=== PATIENT | female | born 1965 | race Caucasian/White ===

== ENCOUNTER 2017-04-02 03:04 | Emergency (ER) | payer OTHER ==
--- NOTE | 2017-04-02 03:06 | PDOC ---
History of Present Illness - General History Source: Patient Exam Limitations: No Limitations - History of Present Illness Initial Comments: 04/02/17 03:20 The patient is a 52 year old female with no significant past medical history who presents to the ED with complaints of irregular heart rate for 3 days and high blood pressure since earlier today. The patient reports palpitations whes she lays down. She states her symptoms woke her up from her sleep tonight.She reports taking 1 baby aspirin with slight relief. Patient also reports high blood pressure earlier today. Upon arrival to the ED the patients blood pressure was 169/94. Denies recent flu-like symptoms. Intermittent episodes of high blood pressure for the past several month but denies taking any medication. Denies shortness of breath or chest pain. Denies headache, lightheadedness, or dizziness. Denies abdominal pain, nausea, vomiting, or diarrhea. Denies any other symptoms. Social hx: The patient is a beautician and works at a salon. <Adrienne Mclean - Last Filed: 04/02/17 03:19> <Jana Riley - Last Filed: 04/02/17 21:58> - General Stated Complaint: RAPID HEART BEAT Time Seen by Provider: 04/02/17 03:06 Past History <Adrienne Mclean - Last Filed: 04/02/17 03:19> <Jana Riley - Last Filed: 04/02/17 21:58> - Past Medical History Allergies/Adverse Reactions: Allergies Allergy/AdvReac Type Severity Reaction Status Date / Time No Known Allergies Allergy Verified 04/02/17 03:13 Home Medications: Ambulatory Orders Valsartan [Diovan] 40 mg PO DAILY #30 tablet 04/02/17 Review of Systems - Review of Systems Able to Perform ROS?: Yes Comments:: 04/02/17 03:20 CONSTITUTIONAL: Absent: fever, chills, diaphoresis, generalized weakness, malaise, loss of appetite HEENT: Absent: rhinorrhea, nasal congestion, throat pain, throat swelling, difficulty swallowing, mouth swelling, ear pain, eye pain, visual Changes CARDIOVASCULAR: + palpitations, high blood pressure Absent: chest pain, syncope, lightheadedness, peripheral edema RESPIRATORY: Absent: cough, shortness of breath, dyspnea with exertion, orthopnea, wheezing, stridor, hemoptysis GASTROINTESTINAL: Absent: abdominal pain, abdominal distension, nausea, vomiting, diarrhea, constipation, melena, hematochezia GENITOURINARY: Absent: dysuria, frequency, urgency, hesitancy, hematuria, flank pain, genital pain MUSCULOSKELETAL: Absent: myalgia, arthralgia, joint swelling SKIN: Absent: rash, itching, pallor HEMATOLOGIC/IMMUNOLOGIC: Absent: easy bleeding, easy bruising, lymphadenopathy, frequent infections ENDOCRINE: Absent: unexplained weight gain, unexplained weight loss, heat intolerance, cold intolerance NEUROLOGIC: Absent: headache, focal weakness or paresthesias, dizziness, unsteady gait, seizure, mental status changes, bladder or bowel incontinence PSYCHIATRIC: Absent: anxiety, depression, suicidal or homicidal ideation, hallucinations. All Other Systems: Reviewed and Negative <Adrienne Mclean - Last Filed: 04/02/17 03:19> *Physical Exam - Vital Signs Last Vital Signs Temp Pulse Resp BP Pulse Ox 98.0 F 71 18 169/94 99 04/02/17 03:12 04/02/17 03:12 04/02/17 03:12 04/02/17 03:12 04/02/17 03:12 - Physical Exam Comments: 04/02/17 03:20 GENERAL: Well developed, well nourished. Awake and alert. No acute distress. HEENT: Normocephalic, atraumatic. PERRLA, EOMI. No conjunctival pallor. Sclera are non- icteric. Moist mucous membranes. Oropharynx is clear. NECK: Supple. Full ROM. No JVD. Carotid pulses 2+ and symmetric, without bruits. No thyromegaly. NCo lymphadenopathy. CARDIOVASCULAR: Regular rate and rhythm. No murmurs, rubs, or gallops. Distal pulses are 2+ and symmetric. PULMONARY: No evidence of respiratory distress. Lungs clear to auscultation bilaterally. No wheezing, rales or rhonchi. ABDOMINAL: Soft. Non-tender. Non-distended. No rebound or guarding. No organomegaly. Normoactive bowel sounds. MUSCULOSKELETAL Normal range of motion at all joints. No bony deformities or tenderness. No CVA tenderness. EXTREMITIES: No cyanosis. No clubbing. No edema. No calf tenderness. SKIN: Warm and dry. Normal capillary refill. No rashes. No jaundice. NEUROLOGICAL: Alert, awake, appropriate. Cranial nerves 2-12 intact. No deficits to light touch and temperature in face, upper extremities and lower extremities. No motor deficits in the in face, upper extremities and lower extremities. Normoreflexic in the upper and lower extremities. Normal speech. Toes are down- going bilaterally. Gait is normal without ataxia. PSYCHIATRIC: Cooperative. Good eye contact. Appropriate mood and affect. <Adrienne Mclean - Last Filed: 04/02/17 03:19> ED Treatment Course - LABORATORY CBC & Chemistry Diagram: 04/02/17 03:25 04/02/17 03:25 <Jana Riley - Last Filed: 04/02/17 21:58> Medical Decision Making - Medical Decision Making 04/02/17 21:56 Pt ocmes with palpitations. She has normal heart rate. But she has HTN; she knows she is hypertensive; however, she is not on meds. I gave her diovan here and a scrpt to go. SHe was advised to go to [facility] and get a holter monitor. Labs and exam here are normal. EKG NSR. 04/02/17 21:58 CXR normal. <Jana Riley - Last Filed: 04/02/17 21:58> *DC/Admit/Observation/Transfer - Attestations Scribe Attestion: 04/02/17 03:20 Documentation prepared by Adrienne Mclean, acting as medical massage therapist for Jana Riley MD <Adrienne Mclean - Last Filed: 04/02/17 03:19> - Discharge Dispostion Admit: No <Jana Riley - Last Filed: 04/02/17 21:58> Diagnosis at time of Disposition: Palpitations, HTN (hypertension) - Discharge Dispostion Disposition: HOME Condition at time of disposition: Stable - Prescriptions Prescriptions: Valsartan [Diovan] 40 mg PO DAILY #30 tablet - Referrals Referrals: Ricky Ahmadi MD [Primary Care Provider] - Freddy Nicole MD [Staff Physician] - - Patient Instructions Printed Discharge Instructions: High Blood Pressure, Two Gram Sodium Diet
[2017-04-02] MEDS ORDERED: SODIUM CHLORIDE 0.9% 500 ML INFUS.BAG IV ONE (03:07)
[2017-04-02] MEDS ORDERED: KETOROLAC TROMETHAMINE 30 MG/1 ML VIAL IVPUSH ONE (03:07)
[2017-04-02 03:20] VITALS: PULSE 71; TEMP 98; BMI 31.1
[2017-04-02] MEDS ORDERED: VALSARTAN 40 MG TABLET (FP) PO ONE (03:21)
[2017-04-02] MEDS ORDERED: KETOROLAC TROMETHAMINE 30 MG/1 ML VIAL ONE (03:28)
[2017-04-02 03:30] LABS: BASOPHIL 0.9 % (0-2.0); MCH 28.5 pg (25.7-33.7); MCHC 33.9 g/dl (32.0-36.0); MEAN CELL VOLUME 84.2 fl (80-96); MEAN PLT VOLUME 8.5 fl (7.5-11.1); NEUTROPHILS 47.7 % (42.8-82.8); PLATELET COUNT 196 K/MM3 (134-434); RDW 13.3 % (11.6-15.6); WHITE BLOOD COUNT 9.5 K/mm3 (4.0-10.0)
[2017-04-02 03:55] LABS: ALBUMIN 3.7 g/dl (3.4-5.0); ANION GAP 13 (8-16); BILIRUBIN,TOTAL 0.3 mg/dL (0.2-1.0); CALCIUM 8.9 mg/dL (8.5-10.1); CO2 23 mmol/L (21-32); COCKROFT - GAULT 111.8345; CREATININE 0.7 mg/dL (0.55-1.02); GLUCOSE,RANDOM 104 mg/dL (74-106); LDH 186 U/L (84-246); SGOT/AST 20 U/L (15-37); SGPT/ALT 32 U/L (12-78); TOT PROT 6.9 g/dl (6.4-8.2)
[2017-04-02 03:58] LABS: ALK PHOS 111 U/L (45-117); TROPONIN I < 0.02 ng/ml (0.00-0.05)
[2017-04-02 04:06] VITALS: BP 130/84
--- NOTE | 2017-04-03 09:30 | EKG ---
Test Reason : Blood Pressure : / mmHG Vent. Rate : 072 BPM Atrial Rate : 072 BPM P-R Int : 148 ms QRS Dur : 080 ms QT Int : 406 ms P-R-T Axes : 009 -27 037 degrees QTc Int : 444 ms NORMAL SINUS RHYTHM LEFTWARD AXIS INFERIOR INFARCT , AGE UNDETERMINED ABNORMAL ECG NO PREVIOUS ECGS AVAILABLE Confirmed by KATJA SERRANO MD ([id number]) on 04/03/2017 9:29:48 AM Referred By: Confirmed By:KATJA SERRANO MD
== END 2017-04-02 04:38 | disposition home or self-care (01) ==
LOC: JER 03:04
PROC: 3E0333Z Introduction of Anti-inflammatory into Peripheral Vein, Percutaneous Approach (ICD-10-PCS; principal; 2017-04-02)
DX: I10 Essential (primary) hypertension (principal)
CPT/HCPCS: 36415; 71020-TC; 80053; 82550; 83615; 84484; 85025; 93005; 93010; 96374; 99282-25

== ENCOUNTER 2023-12-12 15:12 | Emergency (ER) | payer OTHER ==
[2023-12-12 15:31] VITALS: BP 118/65; PULSE 79; RESP 16; TEMP 99; BMI 32.0
[2023-12-12] MEDS ORDERED: ACETAMINOPHEN INJECTION 100 ML IVPB ONE (17:24)
[2023-12-12] MEDS ORDERED: ONDANSETRON 4 MG/2 ML VIAL ONE (17:24)
[2023-12-12 17:34] LABS: BASO % 0.4 % (0-2.0); EOS % 0.2 % (0-4.5); HEMATOCRIT 41.1 % (32.4-45.2); HEMOGLOBIN 14.3 GM/dL (10.7-15.3); MCH 28.8 pg (25.7-33.7); MCHC 34.7 g/dl (32.0-36.0); MEAN CELL VOLUME 82.8 fl (80-96); MEAN PLT VOLUME 8.4 fl (7.5-11.1); MONO % 7.7 % (3.8-10.2); NEUT % 72.7 % (42.8-82.8); PLATELET COUNT 215 10^3/uL (134-434); RBC 4.96 M/mm3 (3.60-5.2); RDW 13.2 % (11.6-15.6); WHITE BLOOD COUNT 10.6 K/mm3 (4.0-10.0)
[2023-12-12] MEDS: SODIUM CHLORIDE 1,000 ML IV STA (17:52)
[2023-12-12] MEDS: ONDANSETRON 4 MG/2 ML VIAL IVPUSH ONE (17:52)
[2023-12-12] MEDS: ACETAMINOPHEN 1000 MG/100 ML BAG IVPB ONE (17:52)
[2023-12-12 17:57] LABS: POTASSIUM 3.3 mmol/L (3.5-5.1)
[2023-12-12 18:00] LABS: ALBUMIN 3.6 g/dl (3.4-5.0); BLOOD UREA NITROGEN 12.7 mg/dL (7-18); CALCIUM 9.2 mg/dL (8.5-10.1)
[2023-12-12 18:03] LABS: CREATININE 0.8 mg/dL (0.55-1.3)
[2023-12-12 18:05] LABS: BILIRUBIN,TOTAL 0.5 mg/dL (0.2-1); TOT PROT 7.6 g/dl (6.4-8.2)
[2023-12-12] MEDS ORDERED: POTASSIUM CHLORIDE ORAL LIQUID 20 MEQ/15 ML ONE (18:30)
[2023-12-12] MEDS: POTASSIUM CHLORIDE ORAL LIQUID 20 MEQ/15 ML PO ONE (18:39)
[2023-12-12 19:14] LABS: EPI CELLS >36 /uL (0-25.1); HYALINE CASTS 2 /uL (0-3.1); PH,URINE 5.5 (5.0-8.0); URINE APPEARANCE CLOUDY; URINE BACTERIA 111 /uL (0-1359); URINE BILIRUBIN NEGATIVE (NEGATIVE); URINE COLOR YELLOW; URINE GLUCOSE (UA) NEGATIVE (NEGATIVE); URINE KETONE TRACE (NEGATIVE); URINE LEUK ESTERASE 2+ (NEGATIVE); URINE NITRITE NEGATIVE (NEGATIVE); URINE PROTEIN NEGATIVE (NEGATIVE); URINE UROBILINOGEN 0.2 mg/dL (0.2-1.0); URINE WBC 624 /uL (0-25.8)
== END 2023-12-12 19:27 | disposition home or self-care (01) ==
LOC: JER 15:12
PROC: 3E033NZ Introduction of Analgesics, Hypnotics, Sedatives into Peripheral Vein, Percutaneous Approach (ICD-10-PCS; principal; 2023-12-12)
PROC: 3E033GC Introduction of Other Therapeutic Substance into Peripheral Vein, Percutaneous Approach (ICD-10-PCS; 2023-12-12)
PROC: 3E0337Z Introduction of Electrolytic and Water Balance Substance into Peripheral Vein, Percutaneous Approach (ICD-10-PCS; 2023-12-12)
DX: U07.1 COVID-19 (principal); R11.2 Nausea with vomiting, unspecified; R07.9 Chest pain, unspecified; E87.6 Hypokalemia; R05.9 Cough, unspecified; R10.9 Unspecified abdominal pain; M54.50 Low back pain, unspecified; Z20.822 Contact with and (suspected) exposure to COVID-19
CPT/HCPCS: 0241U-QW; 36415; 71046-TC-FY; 80053; 81003; 83690; 83735; 84484; 85025; 87086; 93005; 93010; 96361; 96374; 96375; 99285-25; J0131

== ENCOUNTER 2024-05-08 10:49 | Emergency (ER) | payer OTHER ==
[2024-05-08 11:04] VITALS: BP 136/82; PULSE 80; RESP 18; TEMP 99.3; BMI 32.0
[2024-05-08] MEDS ORDERED: ACETAMINOPHEN 500 MG TABLET (FP) ONE (12:03)
[2024-05-08] MEDS ORDERED: IBUPROFEN 600 MG TABLET (FP) PO ONE (12:03)
[2024-05-08] MEDS: ACETAMINOPHEN 500 MG TABLET (FP) PO ONE (12:05)
[2024-05-08] MEDS: IBUPROFEN 600 MG TABLET (FP) PO ONE (12:05)
== END 2024-05-08 14:49 | disposition home or self-care (01) ==
LOC: JER 10:49 → JERFT 10:49
DX: S42.251A Displaced fracture of greater tuberosity of right humerus, initial encounter for closed fracture (principal); W10.8XXA Fall (on) (from) other stairs and steps, initial encounter
CPT/HCPCS: 73030-TC-RT-FY; 73060-TC-RT-FY; 99283-25